=== PATIENT | female | born 1980 | race Caucasian/White ===

== ENCOUNTER 2017-11-22 14:36 | Emergency (ER) | payer OTHER ==
[2017-11-22] MEDS: KETOROLAC 60 MG INJ IM (16:01)
== END 2017-11-22 17:45 | disposition home or self-care (01) ==
LOC: FTE 14:36
DX: S39.92XA Unspecified injury of lower back, initial encounter (principal); X58.XXXA Exposure to other specified factors, initial encounter; Y92.9 Unspecified place or not applicable
CPT/HCPCS: 72100; 81025; 96372; 99284-25